=== PATIENT | male | born 1950 | race Caucasian/White ===

== ENCOUNTER 2016-12-23 10:16 | Emergency (ER) | payer MEDICARE, OTHER ==
[~2016-12-23] VITALS: Ht 170.2 cm; Wt 82.2 kg
[~2016-12-23 10:16] MED LIST: AMLO2.5T PO; LEVE500T53 PO
[2016-12-23 10:31] VITALS: BP 182/82
[2016-12-23] MEDS ORDERED: FLUORESCEIN OPHTHALMIC 1 MG STRIP ONE (10:49)
[2016-12-23] MEDS ORDERED: PROPARACAINE OPHTH 0.5%, 15ML ONE (10:49)
== END 2016-12-23 11:24 | disposition home or self-care (01) ==
LOC: ED 11:23
DX: H54.61 Unqualified visual loss, right eye, normal vision left eye (principal); I10 Essential (primary) hypertension
CPT/HCPCS: 99283

== ENCOUNTER 2017-06-05 19:20 | Emergency (ER) | payer SELFPAY ==
[~2017-06-05] VITALS: Ht 172.7 cm; Wt 75.4 kg
[2017-06-05 19:24] VITALS: BP 128/78
[2017-06-05] MEDS ORDERED: FAMOTIDINE 20 MG TABLET ONE (19:37)
[2017-06-05] MEDS ORDERED: hydrOXyzine 50MG TABLET ONE (19:37)
[2017-06-05] MEDS ORDERED: PERMETHRIN CRM 5%, 60GM ONE (19:37)
[2017-06-05] MEDS ORDERED: PERMETHRIN CRM 5%, 60GM TP SCH (20:00)
[2017-06-05] MEDS ORDERED: FAMOTIDINE 20 MG TABLET PO ONE (20:00)
== END 2017-06-05 20:22 | disposition home or self-care (01) ==
LOC: ED 20:16
DX: R21 Rash and other nonspecific skin eruption (principal); B86 Scabies; I10 Essential (primary) hypertension
CPT/HCPCS: 99284; J7512; Q0177